=== PATIENT | female | born 1990 | race Hispanic/Latino ===

== ENCOUNTER 2024-05-23 02:54 | Inpatient (IN) | payer BC ==
[2024-05-23 03:27] VITALS: BMI 30.3
[2024-05-23] MEDS: Magnesium Sulfate 20 gm/500 ml 20 GM/500 ML BAG ONE (03:50)
[2024-05-23] MEDS ORDERED: Misoprostol 200 MCG TAB PR PRN (03:53)
[2024-05-23] MEDS ORDERED: Carboprost 250 MCG/ML AMP IM PRN (03:53)
[2024-05-23] MEDS ORDERED: Diphenoxylate HCl/Atropine Tablet PO PRN (03:53)
[2024-05-23] MEDS ORDERED: fentaNYL 50 mcg/mL 1 mL Vial SLOW IVP PRN (03:53)
[2024-05-23] MEDS ORDERED: Tranexamic Acid 1,000 MG/10 ML VIAL IVP PRN (03:53)
[2024-05-23] MEDS ORDERED: Labetalol HCl 100 MG/20 ML VIAL SLOW IVP PRN ×2 (03:56)
[2024-05-23] MEDS ORDERED: Lorazepam 2 MG/ML VIAL SLOW IVP PRN (03:56)
[2024-05-23] MEDS ORDERED: Calcium Gluc 4.6 MEQ/10 ML (100 MG/ML) SLOW IVP PRN (03:56)
[2024-05-23] MEDS: Labetalol HCl 100 MG/20 ML VIAL ONE (04:05)
[2024-05-23 04:13] LABS: Bilirubin Neg (Negative); Blood, Urine Negative (Negative); Clarity Clear (Clear); Glucose, Urine (Dipstick) 100 mg/dL (Negative); Ketone, Urine Negative (Negative); Leukocyte Negative (Negative); Nitrite Negative (Negative); Protein, Urine (Dipstick) 15 mg/dl (Neg-Trace); Urobilinogen Normal mg/dL (Less than 2)
[2024-05-23] MEDS: Labetalol HCl 100 MG/20 ML VIAL SLOW IVP PRN (04:19)
[2024-05-23 04:39] LABS: Bacteria/HPF Rare-Few HPF (None Seen); CAUTI Indications for Culture Pregnancy; RBC/HPF 0-3 HPF (0-3); WBC/HPF 0-3 HPF (0-3)
[2024-05-23 04:40] LABS: Urine Culture Reflex Yes Yes
[2024-05-23 04:53] LABS: Creatinine, Urine 42.95 mg/dL (47-110)
[2024-05-23 05:13] LABS: Fetal Membranes Rupture No Membranes Rupture (No Rupture)
[2024-05-23 05:24] LABS: Syphilis Antibody Nonreactive (Nonreactive); Syphilis Antibody Index 0.05 S/CO (<1.00 Non-Reactive)
[2024-05-23 05:25] LABS: Hep B Surf Ag - L&D Non-Reactive S/CO (NonReactive)
[2024-05-23] MEDS: Potassium Chloride 20 MEQ TAB PO SCH (05:37)
[2024-05-23] MEDS: Acetaminophen 500 MG TAB PO PRN (05:37)
[2024-05-23] MEDS ORDERED: Ibuprofen 800 MG TAB PO PRN (08:35)
[2024-05-23] MEDS ORDERED: HYDROcodone/Acetaminophen 5/325 mg Tablet PO PRN (08:35)
[2024-05-23] MEDS ORDERED: Lidocaine 1% (PF) 30 ML VIAL SC PRN (08:35)
[2024-05-23] MEDS: Misoprostol 100 MCG TAB VAG SCH (09:00)
[2024-05-23] MEDS: Penicillin G Potassium 5 MILL.UNITS in Sodium Chloride 0.9% 100 ML IVPB SCH (09:12)
[2024-05-23 09:24] LABS: #Basophils 0.02 10x3/uL (0.0-0.2); #Eosinophils 0.14 10x3/uL (0.0-0.5); #Monocytes 0.71 10x3/uL (0.0-1.1); #Neutrophils 4.81 10x3/uL (1.5-8.4); %Basophils 0.3 % (0.0-2.0); %Eosinophils 1.8 % (0.0-6.0); %Lymphocytes 26.3 % (18.0-47.0); %Monocytes 9.1 % (0.0-10.0); %Neutrophils 61.5 % (40.0-75.0); Hematocrit 32.6 % (34.9-44.5); Hemoglobin 10.4 g/dL (12.0-15.5); Mean Corpuscular HGB CONC 31.9 g/dL (32.0-36.0); Mean Corpuscular Hemoglobin 28.6 pg (27.0-33.0); Mean Corpuscular Volume 89.6 fL (81.6-98.3); Mean Platelet Volume 12.8 fL (7.4-10.4); Platelet Count 196 10x3/uL (150-450); RBC Distribution Width 15.6 % (11.5-14.5); Red Blood Cell (RBC) Count 3.64 10x6/uL (3.90-5.03); White Blood Cell (WBC) Count 7.8 10x3/uL (3.5-10.5)
[2024-05-23] MEDS: hydrALAZINE 20 MG/ML VIAL SLOW IVP PRN (10:56)
[2024-05-23] MEDS: hydrALAZINE 20 MG/ML VIAL SLOW IVP SCH (11:11)
[2024-05-23] MEDS: Penicillin G 2.5 MILL.units 2.5 MILL.UNITS in Premix 1 BAG IVPB SCH (12:46)
[2024-05-23] MEDS: Magnesium Sulfate 20 gm/500 ml 20 GM/500 ML BAG IVPB SCH (12:46)
[2024-05-23] MEDS: Oxytocin 30 units/NS 500 ML 500 ML IV SCH (17:15)
[2024-05-23] MEDS: Ondansetron PF 4 MG/2 ML Vial IVP PRN (17:43)
[2024-05-23] MEDS: fentaNYL/Ropivacaine Epidural 100 ML ONE (19:11)
[2024-05-23] MEDS ORDERED: Naloxone HCl 0.4 mg/ml Vial IVP PRN ×2 (19:38)
[2024-05-23] MEDS ORDERED: Acetaminophen 325 MG TAB PO PRN (19:38)
[2024-05-23] MEDS ORDERED: Promethazine HCl 25 MG/ML VIAL IM PRN (19:38)
[2024-05-23] MEDS ORDERED: Lactated Ringer's 500 ML IV PRN (19:38)
[2024-05-23] MEDS ORDERED: diphenhydrAMINE 50 MG/ML VIAL IVP PRN (19:38)
[2024-05-23] MEDS ORDERED: Ondansetron PF 4 MG/2 ML Vial IVP PRN (19:38)
[2024-05-23] MEDS ORDERED: Moisturizing Cream (Eucerin) 113 GM JAR TOP PRN (19:38)
[2024-05-23] MEDS ORDERED: ePHEDrine Sulfate 50 MG/10 ML VIAL SLOW IVP PRN (19:38)
[2024-05-23] MEDS ORDERED: Communication Order-Pharmacy FS SCH (19:45)
[2024-05-23] MEDS: Calcium Carbonate 500 MG ChewTAB PO SCH (22:10)
[2024-05-24] MEDS: Lactated Ringer's 1,000 ML IV SCH (03:26)
[2024-05-24] MEDS: fentaNYL 2 mcg/Ropivacaine 0.2% Epidural 100 ML CADD EPIDURAL SCH (05:39)
[2024-05-24] MEDS: hydrALAZINE 20 MG/ML VIAL SLOW IVP PRN (06:18)
[2024-05-24] MEDS: Magnesium Sulfate 20 gm/500 ml 20 GM/500 ML BAG IVPB SCH (08:34)
[2024-05-24 10:15] LABS: #Basophils 0.02 10x3/uL (0.0-0.2); #Eosinophils 0.02 10x3/uL (0.0-0.5); #Monocytes 0.95 10x3/uL (0.0-1.1); #Neutrophils 11.58 10x3/uL (1.5-8.4); %Basophils 0.1 % (0.0-2.0); %Eosinophils 0.1 % (0.0-6.0); %Lymphocytes 7.7 % (18.0-47.0); %Monocytes 6.9 % (0.0-10.0); %Neutrophils 84.5 % (40.0-75.0); Hemoglobin 12.2 g/dL (12.0-15.5); Mean Corpuscular HGB CONC 32.1 g/dL (32.0-36.0); Mean Corpuscular Hemoglobin 28.6 pg (27.0-33.0); Mean Corpuscular Volume 89.2 fL (81.6-98.3); Mean Platelet Volume 12.9 fL (7.4-10.4); Platelet Count 230 10x3/uL (150-450); RBC Distribution Width 16.1 % (11.5-14.5); Red Blood Cell (RBC) Count 4.26 10x6/uL (3.90-5.03); White Blood Cell (WBC) Count 13.7 10x3/uL (3.5-10.5)
[2024-05-24 10:28] LABS: ALT (SGPT) 23 U/L (8-55); AST (SGOT) 23 U/L (5-34); Albumin 2.4 g/dL (3.5-5.0); Alkaline Phosphatase 137 U/L (40-110); Anion Gap 15 mmol/L (10-20); BUN (Urea Nitrogen) 7 mg/dL (7.0-18.7); Bilirubin, Total 0.4 mg/dL (0.2-1.2); Calc. Creatinine Clearance 131 mL/min (70-130); Calcium 8.2 mg/dL (7.8-10.44); Carbon Dioxide 16 mmol/L (22-29); Chloride 107 mmol/L (98-107); Estimated GFR 114; Globulin 3.8 g/dL (2.4-3.5); Glucose 96 mg/dL (70-105); Potassium 4.2 mmol/L (3.5-5.1); Protein, Total 6.2 g/dL (6.0-8.3); Sodium 134 mmol/L (136-145)
[2024-05-24] MEDS: Ampicillin 2 GM in Sodium Chloride 0.9% 100 ML IVPB SCH (10:34)
[2024-05-24 10:38] LABS: Critical Call Chemistry NUR.SNJ READ BACK RESULT AT 1038; Magnesium 5.3 mg/dL (1.6-2.6)
[2024-05-24] MEDS: GENTAMICIN SULFATE IVPB SCH (11:19)
[2024-05-24] MEDS: SODIUM CHLORIDE IVPB SCH (11:19)
[2024-05-24] MEDS: ADMIXTURE FEE IVPB SCH (11:19)
[2024-05-24 20:13] LABS: Analyzer IN Cardio CS NICU; Critical Notified By: clumpkins rt; Critical Notified Whom: Sharon PA; RapidComm Collect By nvr.bmb
[2024-05-24 20:14] LABS: Analyzer IN Cardio CS NICU; Critical Notified By: clumpkins rt; Critical Notified Whom: Sharon PA; RapidComm Collect By nvr.bmb; pH (Cord, venous) 7.279 (7.250-7.350)
[2024-05-24] MEDS ORDERED: hydrALAZINE 20 MG/ML VIAL SLOW IVP PRN (20:22)
[2024-05-24] MEDS ORDERED: Preparation H Ointment 28 GM TUBE PR PRN (20:22)
[2024-05-24] MEDS ORDERED: Benzocaine-Menthol 82.5 ML CAN TOP PRN (20:22)
[2024-05-24] MEDS ORDERED: Bisacodyl 10 MG SUPP PR PRN (20:22)
[2024-05-24] MEDS ORDERED: Measles/Mumps/Rubella 10 MCG/0.5 ML VIAL SC ONE (20:22)
[2024-05-24] MEDS ORDERED: diphenhydrAMINE 25 MG CAP PO PRN (20:22)
[2024-05-24] MEDS ORDERED: Methylergonovine 0.2 MG/ML VIAL IM PRN (20:22)
[2024-05-24] MEDS ORDERED: Lanolin Ointment 7 GM TUBE TOP PRN (20:22)
[2024-05-24] MEDS ORDERED: Milk Of Magnesia 30 ML UDCUP PO PRN (20:22)
[2024-05-24] MEDS ORDERED: Zolpidem Tartrate 5 MG TAB PO PRN (20:22)
[2024-05-24] MEDS: Furosemide 20 MG (2 mL) VIAL SLOW IVP SCH (20:58)
[2024-05-24] MEDS: NIFEdipine XL 30 MG ER.TAB PO SCH (21:15)
[2024-05-24] MEDS: Ibuprofen 800 MG TAB PO SCH (22:14)
[2024-05-24] MEDS: Oxytocin 30 units/NS 500 ML 500 ML IV SCH (22:15)
[2024-05-25 03:55] LABS: #Basophils 0.02 10x3/uL (0.0-0.2); #Eosinophils 0.07 10x3/uL (0.0-0.5); #Monocytes 1.41 10x3/uL (0.0-1.1); #Neutrophils 12.17 10x3/uL (1.5-8.4); %Basophils 0.1 % (0.0-2.0); %Eosinophils 0.4 % (0.0-6.0); %Lymphocytes 13.2 % (18.0-47.0); %Monocytes 8.9 % (0.0-10.0); %Neutrophils 76.9 % (40.0-75.0); Hematocrit 30.2 % (34.9-44.5); Hemoglobin 9.7 g/dL (12.0-15.5); Mean Corpuscular HGB CONC 32.1 g/dL (32.0-36.0); Mean Corpuscular Hemoglobin 28.5 pg (27.0-33.0); Mean Corpuscular Volume 88.8 fL (81.6-98.3); Mean Platelet Volume 12.6 fL (7.4-10.4); Platelet Count 193 10x3/uL (150-450); RBC Distribution Width 16.1 % (11.5-14.5); White Blood Cell (WBC) Count 15.8 10x3/uL (3.5-10.5)
[2024-05-25 04:16] LABS: ALT (SGPT) 20 U/L (8-55); AST (SGOT) 32 U/L (5-34); Alkaline Phosphatase 104 U/L (40-110); Anion Gap 12 mmol/L (10-20); BUN (Urea Nitrogen) 12 mg/dL (7.0-18.7); Bilirubin, Total 0.4 mg/dL (0.2-1.2); Calc. Creatinine Clearance 115 mL/min (70-130); Calcium 7.7 mg/dL (7.8-10.44); Carbon Dioxide 18 mmol/L (22-29); Chloride 107 mmol/L (98-107); Estimated GFR 97; Glucose 82 mg/dL (70-105); Potassium 3.6 mmol/L (3.5-5.1); Sodium 133 mmol/L (136-145)
[2024-05-25] MEDS: Docusate 100 MG CAP PO SCH (07:20)
[2024-05-25] MEDS: hydrALAZINE 20 MG/ML VIAL ONE (07:26)
[2024-05-25] MEDS: Prenatal Vitamin 1 TAB PO SCH (08:48)
[2024-05-25] MEDS: Labetalol HCl 100 MG TAB PO SCH (08:48)
[2024-05-25] MEDS: Ferrous Sulfate 325 MG TAB PO SCH (08:48)
[2024-05-25] MEDS: Boostrix 0.5 ML (Tdap) VIAL (>/=7 yrs of age) IM ONE (12:38)
[2024-05-26] MEDS: Labetalol HCl 100 MG TAB PO SCH (08:13)
[2024-05-26] MEDS: hydrALAZINE 20 MG/ML VIAL ONE (08:14)
[2024-05-27] MEDS: NIFEdipine XL 30 MG ER.TAB PO SCH (07:53)
[2024-05-27] MEDS: Labetalol HCl 200 MG TAB PO SCH (07:53)
[2024-05-27] MEDS: NIFEdipine XL 90 MG ER.TAB PO SCH (21:31)
[2024-05-28] MEDS ORDERED: Ibuprofen 200 MG TAB PO PRN (05:41)
[2024-05-28 08:00] VITALS: BP 136/79
[2024-05-28 09:54] VITALS: TEMP 97.7
== END 2024-05-28 08:30 | disposition home or self-care (01) | DRG 805 ==
LOC: CSHLD/OP 02:54 → CSHLD 04:40 → CSHPP 05-25 21:16
PROVIDERS: ADMIT Student in an Organized Health Care Education/Training Program; ATTEND Student in an Organized Health Care Education/Training Program
PROC: 10D07Z6 Extraction of Products of Conception, Vacuum, Via Natural or Artificial Opening (ICD-10-PCS; principal; 2024-05-24)
PROC: 0KQM0ZZ Repair Perineum Muscle, Open Approach (ICD-10-PCS; 2024-05-24)
DX: O14.94 Unspecified pre-eclampsia, complicating childbirth (principal); O41.1030 Infection of amniotic sac and membranes, unspecified, third trimester, not applicable or unspecified; Z37.0 Single live birth; O41.03X0 Oligohydramnios, third trimester, not applicable or unspecified; Z3A.38 38 weeks gestation of pregnancy; Z79.82 Long term (current) use of aspirin; O99.824 Streptococcus B carrier state complicating childbirth; O75.81 Maternal exhaustion complicating labor and delivery
CPT/HCPCS: 36415; 51702; 76819; 80053; 81001; 82570; 82805; 83735; 84112; 84156; 85025; 86780; 86850; 86900; 86901; 87086; 87340; 99285; J0290; J0360; J1580; J1940; J2405; J2540; J2590; J3475; J7120